=== PATIENT | female | born 1990 | race Hispanic/Latino ===

== ENCOUNTER 2023-05-02 10:54 | Observation (INO) | payer MEDICAID ==
[~2023-05-02] VITALS: Ht 162.6 cm; Wt 117.9 kg
[2023-05-02 11:35] LABS: APPEARANCE,URINE CLEAR (CLEAR); BILIRUBIN,URINE NEGATIVE (NEGATIVE); COLOR,URINE YELLOW (YELLOW); GLUCOSE, URINE (UA) >=1000 mg/dL (NEGATIVE); KETONES,URINE 5 mg/dL (NEGATIVE); LEUKOCYTE ESTERASE ,URINE 75 Leu/uL (NEGATIVE); NITRATE,URINE NEGATIVE (NEGATIVE); OCCULT BLOOD,URINE NEGATIVE (NEGATIVE); PROTEIN,URINE 20 mg/dL (NEGATIVE); UROBILINOGEN,URINE 0.2 mg/dL (0.2-1.0)
[2023-05-02 11:36] LABS: ADD UA MICROSCOPIC YES
[2023-05-02 11:47] LABS: BACTERIA,URINE RARE /HPF (None Seen); MUCUS,URINE RARE LPF (None Seen); SQUAMOUS EPITHELIAL CELL,UR MOD /HPF (0-2)
[2023-05-02] MEDS: LACTATED RINGERS 1000ML IV ONE (13:10)
== END 2023-05-02 15:05 | disposition home or self-care (01) ==
LOC: EDH 10:54 → LDH 10:55
PROVIDERS: ADMIT Obstetrics & Gynecology; ATTEND Obstetrics & Gynecology
DX: O26.893 Other specified pregnancy related conditions, third trimester (principal); R10.30 Lower abdominal pain, unspecified; Z3A.34 34 weeks gestation of pregnancy
CPT/HCPCS: 96360; 96361; 87077; 87088; 87186; 81001; G0378 ×4; G0379; J7120

== ENCOUNTER 2023-08-02 19:18 | Emergency (ER) | payer MEDICAID ==
[~2023-08-02] VITALS: Ht 162.6 cm; Wt 118.4 kg
[2023-08-02 19:21] VITALS: BP 149/97; PULSE 100; RESP 20
[2023-08-02] MEDS: KETOROLAC 15MG/ML VIAL (15MG/ML) IM STA (19:30)
[2023-08-02] MEDS ORDERED: CLIN-141 PO (20:01)
== END 2023-08-02 20:08 | disposition home or self-care (01) ==
LOC: EDH 19:18
DX: K04.7 Periapical abscess without sinus (principal)
CPT/HCPCS: 99283; 96372; J1885